=== PATIENT | male | born 1960 | race Caucasian/White ===

== ENCOUNTER 2016-11-03 10:20 | Emergency (ER) | payer BC, OTHER ==
--- NOTE | 2016-11-03 11:08 | ED ---
Lower Extremity - HPI Summary HPI Summary: Patient presents with left knee pain and swelling. According to the patient he has been "off heroin" for sometime, and completely sober for 28 days. He underwent left TKR approximately [address] Mejía in [place], and has had a subsequent infection in 2015 which was treated with a surgical washout, six weeks of IV antibiotics and then oral antibiotics. According to the patient, he called Dr. Mejía's office 6 days ago for a refill of his antibiotics but since he missed his appointment that day and had to reschedule, he was told "he could wait until he was seen again". He began to taper his dose so he "could have enough to last until he was seen". Four days ago his knee began to hurt and swell again. He hoped it would get better but today the pain was unbearable. The knee is swollen and warm with minimal erythema. No fever, drainage or bruising. Any movement is excruciatingly painful. - History of Current Complaint Chief Complaint: EDExtremityLower Stated Complaint: LEFT KNEE INFECTION Time Seen by Provider: 11/03/16 10:54 Hx Obtained From: Patient Mechanism Of Injury: Unknown Onset of Pain: Days Onset/Duration: Worse Since - three days ago Severity Initially: Moderate Severity Currently: Severe Pain Intensity: 9 Timing: Constant Location: Is Discrete @ - left knee Character Of Pain: Aching, Stiffness Associated Signs And Symptoms: Positive: Swelling, Redness, Knee Pain Aggravating Factor(s): Standing, Movement Alleviating Factor(s): Nothing Able to Bear Weight: No - Allergies/Home Medications Allergies/Adverse Reactions: Allergies Allergy/AdvReac Type Severity Reaction Status Date / Time Vancomycin Allergy Intermediate YODIT Verified 11/03/16 10:28 SYNDROME PMH/Surg Hx/FS Hx/Imm Hx Endocrine/Hematology History: Denies: Hx Diabetes, Hx Thyroid Disease, Hx Anemia Cardiovascular History: Reports: Hx Deep Vein Thrombosis Denies: Hx Hypertension Respiratory History: Reports: Hx Pulmonary Embolism Denies: Hx Asthma, Hx Chronic Obstructive Pulmonary Disease (COPD) GI History: Denies: Hx Hiatal Hernia, Hx Ulcer Musculoskeletal History: Reports: Hx Arthritis, Hx Back Problems Denies: Hx Osteoporosis Sensory History: Reports: Hx Contacts or Glasses Denies: Hx Cataracts, Hx Eye Injury, Hx Eye Prosthesis, Hx Glaucoma, Hx Macular Degeneration, Hx Vision Problem, Hx Deafness, Hx Hearing Aid, Hx Hearing Problem, Other Sensory Impairments Opthamlomology History: Reports: Hx Contacts or Glasses Denies: Hx Cataracts, Hx Eye Injury, Hx Eye Prosthesis, Hx Glaucoma, Hx Macular Degeneration, Hx Vision Problem, Other Sensory Impairments Neurological History: Reports: Other Neuro Impairments/Disorders - hx 30 concussions Denies: Hx Dementia, Hx Developmental Delay, Hx Headaches, Hx Migraine, Hx Seizures, Hx Spinal Cord Injury, Hx Transient Ischemic Attacks (TIA) Psychiatric History: Reports: Hx Anxiety, Hx Depression, Hx Inpatient Treatment , Hx Community Mental Health Tx, Hx Bipolar Disorder, Hx Suicide Attempt, Hx Substance Abuse Denies: Hx Attention Deficit Hyperactivity Disorder, Hx Eating Disorder, Hx Panic Disorder, Hx Post Traumatic Stress Disorder, Hx Schizophrenia, Hx of Violent Episodes Against Others, Other Psychiatric Issues/Disorders - Surgical History Surgery Procedure, Year, and Place: Left Total Knee Replacement, Right Leg Plate Infectious Disease History: Yes Infectious Disease History: Reports: Hx Hepatitis - viral hepatitis C, Hx of Known/Suspected MRSA, Hx Known/Suspected VRE, 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, History Other Infectious Disease - Red Man Syndrome Denies: Hx Clostridium Difficile, Hx Human Immunodeficiency Virus (HIV), Hx Shingles, Hx Tuberculosis, Traveled Outside the [place] in Last 30 Days - Family History Known Family History: Positive: Other - PROSTATE CANCER - DAD Negative: Hypertension - Social History Occupation: Unemployed Lives: Alone Alcohol Use: Occasionally Alcohol Amount: recovery Substance Use Type: Reports: Cocaine, Heroin Substance Use Comment - Amount & Last Used: In recovery for 6 months Smoking Status (MU): Heavy Every Day Tobacco Smoker Type: Cigarettes Amount Used/How Often: 1/2 ppd Length of Time of Smoking/Using Tobacco: 40 years Have You Smoked in the Last Year: Yes Cessation Counseling: Patient Advised to Stop Review of Systems Positive: Fatigue. Negative: Fever, Chills Negative: Chest Pain Negative: Shortness Of Breath Positive: Arthralgia, Myalgia, Decreased ROM, Edema Positive: Other - mild erythema, incision well healed without drainage All Other Systems Reviewed And Are Negative: Yes Physical Exam Triage Information Reviewed: Yes Vital Signs On Initial Exam: Initial Vitals Temp Pulse Resp BP Pulse Ox 98.2 F 103 16 160/84 100 11/03/16 10:22 11/03/16 10:22 11/03/16 10:22 11/03/16 10:22 11/03/16 10:22 Vital Signs Reviewed: Yes Appearance: Positive: Well-Appearing, Well-Nourished, Pain Distress Skin: Positive: Warm, Skin Color Reflects Adequate Perfusion, Dry, Tender, Soft , Erythema @ - left knee with mild erythema, incision well healed without drainage Head/Face: Positive: Normal Head/Face Inspection Eyes: Positive: EOMI, JENNIE, Conjunctiva Clear ENT: Positive: Hearing grossly normal Respiratory/Lung Sounds: Positive: Clear to Auscultation, Breath Sounds Present Cardiovascular: Positive: Tachycardia Abdomen Description: Positive: Nontender, Soft Bowel Sounds: Positive: Present Musculoskeletal: Positive: Limited @ - Left knee flexion and extension limited due to pain; knee resting at 20 degrees., Pain @ - Globally tender over the med/ lat/ant/posterior knee with effusion and swelling distally to the foot., Edema Left Neurological: Positive: Sensory/Motor Intact, Alert, Oriented to Person Place, Time, NV Bundle Intact Distally, Unable to Assess Gait Psychiatric: Positive: Affect/Mood Appropriate AVPU Assessment: Alert Diagnostics - Vital Signs Vital Signs Temp Pulse Resp BP Pulse Ox 11/03/16 10:22 98.2 F 103 16 160/84 100 - Laboratory Result Diagrams: 11/03/16 11:20 11/03/16 11:20 Lab Statement: Any lab studies that have been ordered have been reviewed, and results considered in the medical decision making process. - Radiology No standard instances Xray Interpretation: No Acute Changes Radiology Interpretation Completed By: Radiologist Re-Evaluation - Re-Evaluation First Eval Re-Evaluation Time: 13:30 Change: Improved Comment: patient's pain improved. Lower Extremity Course/Dx - Course Course Of Treatment: I discussed patient's labs with Dr. Feliz, the orthopedic surgeon of record, and we determined that there does not appear to be an urgent need for intervention. The patient will be discharged home with refills for his rifampin and keflex, with directions to follow-up with him in [place] on or Friday. He is to continue his suboxone and ibuprofen. - Diagnoses Differential Diagnosis/HQI/PQRI: Positive: Arthritis, Bursitis, Cellulitis, Compartment Syndrome, Contusion, DVT, Fracture (Closed), Gout, Infection, Osteomyelitis, Sprain, Strain Provider Diagnoses: Left knee pain - Physician Notifications Discussed Care of Patient With: Dr. Denney, orthopedic surgeon; Dr. Feliz, orthopedic surgeon of record. Time Discussed With Above Provider: 11:30 Discharge - Discharge Plan Condition: Stable Disposition: HOME Prescriptions: Cephalexin CAP* [Keflex CAP*] 500 mg PO QID #20 cap RiFAMPin CAP* 300 mg PO BID #10 cap Patient Education Materials: Knee Pain (ED) Referrals: Donnell Aj MD [Primary Care Provider] - Additional Instructions: It is imperative that you call Dr. Mejía tomorrow for an appointment to be seen. He will be in [place] on or Friday, so this could be more convenient for you. Take your antibiotics as prescribed and use ibuprofen and your suboxone for pain. If your symptoms worsen, return to the emergency department. Addendum entered and electronically signed by Radhika Olmos PA 11/04/16 08: 44: ED Addendum Addendum: Patient blood culture cam back positive for Staph, negative for MRSA. patient placed on Keflex at d/c. Asked Dr Espinoza and said to contact patient and advise to follow up with ortho or can return to ER. Nurse Catina is going to call Addendum entered and electronically signed by Laura Powell PA 11/07/16 15:21: ED Addendum Addendum: Pt's cx and sens returned - pt already taking keflex - appropriate, no changes at this time. Notes above indicate pt will f/u w/ orthopedist this week or return to ED if worse. Addendum entered and electronically signed by Laura Powell PA 11/07/16 15:22: ED Addendum Addendum: Will forward results to Dr. Mejía in [place]. jamia Frostrk, to send.
[2016-11-03] MEDS ORDERED: NS 0.9% 1000 ML* 1,000 ML IV ONE (11:39)
--- NOTE | 2016-11-03 12:19 | RAD ---
Indication: LEFT knee swelling and pain. Septic knee. Comparison: August 15, 2016 Technique: AP and crosstable lateral views LEFT knee Report: Total knee prosthesis in place without evidence for loosening or periprosthetic fracture. Chronic bone fragment at the medial margin of the tibial plateau is unchanged. Moderate joint effusion decreased in volume compared with the prior exam. No osseous erosions or periosteal reaction evident. Diffuse soft tissue edema. IMPRESSION: Interval decrease in joint effusion compared with the August 15, 2016 exam. Diffuse soft tissue swelling. No stigmata of prosthesis loosening or other radiograph stigmata of osteomyelitis. Correlate with clinical assessment and consider arthrocentesis.
[2016-11-03] MEDS ORDERED: HYDROmorphone INJ* 1 MG/ML CARPUJECT SYRINGE IV SLOW PU ONE (12:37)
[2016-11-03 13:02] LABS: Hematocrit 37 % (42-52); Hemoglobin 12.4 g/dl (14.0-18.0); Mean Corpuscular HGB Conc 34 g/dl (31-36); Mean Corpuscular Hemoglobin 28 pg (27-31); Mean Corpuscular Volume 84 fL (80-94); Mean Platelet Volume 8 um3 (7.4-10.4); Red Blood Count 4.39 10^6/ul (4.0-5.4); Red Cell Distribution Width 13 % (10.5-15)
[2016-11-03 13:15] LABS: Albumin 3.6 g/dL (3.2-5.2); C Reactive Protein 4.48 mg/L (< 5.00); EGFR African American 137.5 (>60); EGFR Non-African American 106.9 (>60); Globulin 3.3 g/dL (2-4); Potassium 4.2 mmol/L (3.5-5.0); Total Bilirubin 0.5 mg/dL (0.2-1.0); Total Protein 6.9 g/dL (6.4-8.9); Troponin I 0.01 ng/mL (<0.04)
[2016-11-03] MEDS ORDERED: ceFAZolin 2 GM PREMIX (*) 2 GM/50 ML BAG IVPB ONE (13:33)
[2016-11-03] MEDS ORDERED: RiFAMPin IV* 600 MG in NS 0.9% 250 ML* 250 ML IVPB ONE (13:39)
[2016-11-03 13:45] VITALS: BP 136/88
[2016-11-03] MEDS ORDERED: Cephalexin CAP* 500 MG PO ONE (13:48)
[2016-11-03] MEDS ORDERED: RiFAMPin CAP* 300 MG CAP PO ONE (13:48)
[2016-11-03] MEDS ORDERED: Ketorolac INJ* 30 MG/ML 1 ML VIAL IV ONE (13:50)
[2016-11-03] MEDS ORDERED: RiFAMPin IV* 600 MG in NS 0.9% 250 ML* 250 ML IVPB SCH (14:00)
--- NOTE | 2016-11-09 06:58 | PN ---
Progress Note - Progress Note Note: Patient culture positive for S. Aureus, negative for MRSA. Patient already placed on Keflex covering Staph. No further action required.
== END 2016-11-03 14:14 | disposition home or self-care (01) ==
LOC: ED 10:20
DX: T84.84XA Pain due to internal orthopedic prosthetic devices, implants and grafts, initial encounter (principal); F17.210 Nicotine dependence, cigarettes, uncomplicated; Z86.718 Personal history of other venous thrombosis and embolism; B19.20 Unspecified viral hepatitis C without hepatic coma; Z96.652 Presence of left artificial knee joint; Y83.1 Surgical operation with implant of artificial internal device as the cause of abnormal reaction of the patient, or of later complication, without mention of misadventure at the time of the procedure; Y92.9 Unspecified place or not applicable; Z22.321 Carrier or suspected carrier of Methicillin susceptible Staphylococcus aureus
CPT/HCPCS: 36415; 80053; 83605; 84484; 85025; 85610; 85730; 86140; 87040; 87077; 87150; 87186; 87205; 96360; 96374; 96375; 99283; A9270-GY; J0690; J1170; J1885

== ENCOUNTER 2023-04-11 05:33 | Inpatient (IN) ==
[~2023-04-11 05:33] MED LIST: Naloxone 0.4 mg VIAL 0.4 mg/ml 1 ml VIAL IV PRN; Ondansetron 4 mg VIAL 2 MG/ML 2 ml VIAL IV PRN; fentaNYL 100 mcg/2 ml 50 MCG/ML VIAL IV PRN
[2023-04-11] MEDS ORDERED: Lactated Ringers 1000 ml BAG 1,000 ML IV SCH (06:00)
[2023-04-11] MEDS ORDERED: Buffered Lidocaine 1% SYRIN 1 ml INTRADERM ONE (06:00)
[2023-04-11] MEDS ORDERED: ceFAZolin 2 GM PREMIX 2 GM/50 ML BAG ONE (06:09)
[2023-04-11] MEDS ORDERED: Phenylephrine IV 10 MG/ML 1 ml VIAL ONE (06:25)
[2023-04-11] MEDS ORDERED: Midazolam 2 mg/2 ml VIAL 1 mg/ml 2 ml VIAL (2 mg) ONE (06:25)
[2023-04-11] MEDS ORDERED: fentaNYL 100 mcg/2 ml 50 MCG/ML VIAL ONE ×2 (06:25→07:06)
[2023-04-11] MEDS ORDERED: Ondansetron 4 mg VIAL 2 MG/ML 2 ml VIAL ONE (07:06)
[2023-04-11] MEDS ORDERED: ROPIVACAINE 5 MG/ML 30 ML BTL (0.5%) ONE (07:16)
[2023-04-11] MEDS ORDERED: Dexamethasone IV 4 MG/ML VIAL 1 ml VIAL ONE (08:03)
[2023-04-11] MEDS ORDERED: Acetaminophen IV 1 GM/100ML 1,000 MG/100 ML BAG IV ONE (08:03)
[2023-04-11] MEDS ORDERED: Ketamine HCL 50 mg/ml 10 ml VIAL (500 MG) ONE (08:10)
[2023-04-11 08:12] LABS: Rapid COVID-19 Molecular Undetected (Undetected)
[2023-04-11] MEDS ORDERED: Propofol 10 MG/ML 20 ML BTL ONE ×2 (08:18→08:39)
[2023-04-11] MEDS ORDERED: Ondansetron ODT 4 mg TAB 4 MG TAB PO PRN (10:14)
[2023-04-11] MEDS ORDERED: Morphine 2 MG/ML SYRINGE IV PRN (10:14)
[2023-04-11] MEDS ORDERED: Lactulose 30 ml UDC PO PRN (10:14)
[2023-04-11] MEDS ORDERED: Ondansetron 4 mg VIAL 2 MG/ML 2 ml VIAL IV PRN (10:14)
[2023-04-11] MEDS ORDERED: Magnesium Hydroxide LIQ 30 ML UDC PO PRN (10:14)
[2023-04-11] MEDS: Lactated Ringers 1000 ml BAG 1,000 ML IV SCH ×2 (12:24→23:51)
[2023-04-11] MEDS: Buprenorp/Nalox 8-2 MG FILM SL SCH (12:51)
[2023-04-11] MEDS: ceFAZolin 1 GM ADVAN 1 GM in NS 0.9% 50 ML 50 ML IVPB SCH (16:41)
[2023-04-11] MEDS: Magnesium Hydroxide LIQ 30 ML UDC PO SCH (21:16)
[2023-04-12] MEDS: ceFAZolin 1 GM ADVAN 1 GM in NS 0.9% 50 ML 50 ML IVPB SCH ×2 (01:52→08:27)
[2023-04-12 06:53] LABS: Hematocrit 33.8 % (38-53); Hemoglobin 11.9 g/dL (13.2-16.3); Mean Platelet Volume 8.7 fL (7.5-11.2); Platelet Count 136 10^3/uL (150-450)
[2023-04-12 07:18] LABS: Calcium 8.8 mg/dL (8.6-10.3); Creatinine, Serum 0.76 mg/dL (0.67-1.17); Potassium 4.1 mmol/L (3.5-5.0); eGFR CKD-EPI 102.3 (>60)
[2023-04-12] MEDS: Buprenorp/Nalox 8-2 MG FILM SL SCH (08:51)
[2023-04-12] MEDS: Magnesium Hydroxide LIQ 30 ML UDC PO SCH (08:51)
[2023-04-12] MEDS ORDERED: Vitamin THERAPEUTIC TAB PO SCH (09:00)
[2023-04-12 14:00] VITALS: BP 152/98
== END 2023-04-12 13:45 | disposition home or self-care (01) | DRG 301 ==
LOC: INTOOBSV 05:33 → AA 05:33 → OBSVTOIN 10:15 → SSU 11:42
PROVIDERS: ADMIT Orthopaedic Surgery Adult Reconstructive Orthopaedic Surgery; ATTEND Orthopaedic Surgery Adult Reconstructive Orthopaedic Surgery